=== PATIENT | female | born 1990 | race Caucasian/White ===

== ENCOUNTER 2021-12-02 17:03 | Emergency (ER) | payer MEDICAID, OTHER ==
[~2021-12-02] VITALS: Ht 170.2 cm; Wt 142.9 kg
[2021-12-02 17:08] VITALS: BP 123/90
== END 2021-12-02 18:40 | disposition left against medical advice (07) ==
LOC: ER 17:03
DX: R06.02 Shortness of breath (principal); R42 Dizziness and giddiness; Z53.21 Procedure and treatment not carried out due to patient leaving prior to being seen by health care provider
CPT/HCPCS: 93005